=== PATIENT | male | born 1955 | race Hispanic/Latino ===

== ENCOUNTER 2019-02-21 14:47 | Outpatient (CLI) | payer OTHER ==
--- NOTE | 2019-02-21 15:18 | XRay Report ---
CHEST TWO VIEWS: 02/21/19 14:47:00 CLINICAL: Preop cardiovascular clearance. COMPARISON: None FINDINGS: Normal heart and pulmonary vasculature. The lungs are normally expanded and clear except for a few tiny right calcified granulomata.. Mild aortic tortuosity. Spondylosis of the thoracic spine.The bones and soft tissues are otherwise unremarkable.. IMPRESSION: No acute cardiopulmonary process. 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
== END 2019-02-21 14:48 | disposition home or self-care (01) ==
LOC: SPVIMAG 14:47
PROVIDERS: ATTEND Internal Medicine
DX: Z01.818 Encounter for other preprocedural examination (principal); I10 Essential (primary) hypertension; M47.814 Spondylosis without myelopathy or radiculopathy, thoracic region
CPT/HCPCS: 71046